=== PATIENT | male | born 1990 | race Caucasian/White ===

== ENCOUNTER 2018-02-28 08:30 | Emergency (ER) | payer MEDICARE, MEDICAID | END 2018-02-28 09:53 | disposition home or self-care (01) | LOC: FTE 08:30 | DX: A49.9 Bacterial infection, unspecified (principal) | CPT/HCPCS: 99283 ==

== ENCOUNTER 2018-04-12 09:50 | Emergency (ER) | payer MEDICARE, MEDICAID ==
[2018-04-12] MEDS: LIDOCAINE 1% (MDV) 10 ML INJ INFIL (10:40)
[2018-04-12] MEDS: DIPHTH/TET/ACEL PERTUSS (ADULT) 0.5 ML VIAL IM* (10:48)
== END 2018-04-12 12:51 | disposition home or self-care (01) ==
LOC: FTE 09:50
DX: S61.102A Unspecified open wound of left thumb with damage to nail, initial encounter (principal); B35.2 Tinea manuum; R40.2412 Glasgow coma scale score 13-15, at arrival to emergency department; W23.0XXA Caught, crushed, jammed, or pinched between moving objects, initial encounter; Y92.9 Unspecified place or not applicable; Z23 Encounter for immunization
CPT/HCPCS: 11730; 90471; 90715; 99283-25

== ENCOUNTER 2018-04-14 13:39 | Emergency (ER) | payer MEDICARE, MEDICAID | END 2018-04-14 15:33 | disposition home or self-care (01) | LOC: FTE 13:39 | DX: Z48.01 Encounter for change or removal of surgical wound dressing (principal) | CPT/HCPCS: 99283 ==

== ENCOUNTER 2018-10-01 12:37 | Emergency (ER) | payer OTHER, MEDICAID, MEDICARE | END 2018-10-01 13:11 | disposition home or self-care (01) | LOC: FTE 12:37 | DX: J02.9 Acute pharyngitis, unspecified (principal); J40 Bronchitis, not specified as acute or chronic | CPT/HCPCS: 99283 ==